=== PATIENT | male | born 1965 | race Caucasian/White ===

== ENCOUNTER → 2018-11-26 | Outpatient (CLI) | payer OTHER ==
--- NOTE | 2018-11-27 00:50 | RADRPT ---
PROCEDURE: RIGHT femur x-ray CLINICAL INDICATION: pain TECHNIQUE: AP and lateral views of the femur were obtained. COMPARISON: None FINDINGS: There is normal mineralization. No acute fracture or dislocation is seen. There are no significant degenerative changes. There is no significant soft tissue swelling. There is calcification adjacent to the medial femoral condyle, consistent with a Bertin-Stieda re gion. RPTAT: AA IMPRESSION: Calcification adjacent to the medial femoral condyle, consistent with a Bertin-Stieda region. No acute fracture. .Rolando Mendez MD, MD Date Time Electronically viewed and signed by .Rolando Mendez MD, on 11/27/2018 00:50 .S/
--- NOTE | 2018-11-27 10:11 | RADRPT ---
PROCEDURE: XR Pelvis CLINICAL INDICATION: Pain TECHNIQUE: Single view of the pelvis were obtained. COMPARISON: None. FINDINGS: There is no acute fracture. Bilateral femoral heads are well seated within the respective acetabula. Obturator rings are intact. Osseous mineralization is normal. IMPRESSION: 1. Unremarkable pelvic radiograph. RPTAT: AAEE Physician Ezequiel Date Time Electronically viewed and signed by Marlys Faust Physician on 11/27/2018 10:11 RF/
--- NOTE | 2018-11-27 16:44 | CONS ---
Assessment/Plan Assessment/Plan Hospital Course (Demo Recall) 53-year-old male with history of Waldenstrom's Lymphoma who presents with severe lower back pain, pelvic pain, and worsening right hip pain. I believe the patient has 2 ongoing issues at this time. The first more acute issue is possible infection either cellulitis versus abscess versus possible lymphadenitis involving his right groin and lateral thigh. In addition to this I believe most of his symptoms as previously stated by the 2 prior orthopedic surgeons secondary to multiple insufficiency fractures of the pelvis and changes in the lower spine are likely related to his lymphoma. There are multiple marrow changes in his pelvis which are consistent with lymphoma. Replacement of the normal bone with tumor can cause weakness in the bone and lead to insufficiency fractures as seen on the MRI. There is no surgical intervention indicated for these fractures. His intermittent lower extremity weakness is likely secondary to nerve compression in his lumbar spine. Again there are changes on the MRI that can be consistent with lymphoma however the disc herniations may or may not be related to his lymphoma. At this time the outpatient labs are closed for the day to obtain further labs to evaluate the patient. He is currently not showing any signs of sepsis. He is afebrile. He is not tachycardic. He has a scheduled appointment tomorrow morning with his oncologist. If the patient begins to have fevers and chills or worsening of symptoms he should go to the emergency department to be admitted to the hospital. I am recommending that he go to [facility] as that is where his oncologist is and all his medical records for his lymphoma are. Otherwise he is to follow-up with his oncologist tomorrow and I am recommending that he has a full work-up for infection and likely be admitted from his oncologist office for further evaluation and treatment as an inpatient as necessary. I expressed to the patient that when he goes to his oncologist office that his oncologist should call my office so I can discuss his case in more detail if necessary. The patient should follow-up with me on a as needed basis as he should follow-up with the orthopedic oncologist and his medical oncologist for further evaluation and treatment. I am recommending protected weightbearing until his pain improves. Consultation Date/Type/Reason Admit Date/Time Date of Consultation: Nov 26, 2018 Reason for Consultation Pelvic pain and right hip pain Date/Time of Note DATE: 11/27/18 TIME: 16:15 Hx of Present Illness This is a 53-year-old male with history of Waldenstrom's lymphoma that was first diagnosed in 2012 secondary to anemia. He was otherwise asymptomatic. He was on infusions at that time while living in [place] for treatment. In 2015 he moved to [place]. He had a new oncologist and the infusions were stopped and just continued clinical follow-up. Patient remained asymptomatic until this August when he began to have severe pelvic and lateral hip pain. The pain was migratory and would change locations sometimes being in the lower back, sometimes in the front or back of the pelvis and sometimes in the hips themselves. He had acute episodes of weakness and at one time could not flex or lift up his left leg. This then spontaneously resolved. He had numerous muscle spasms. He endorses significant increase in night sweats in August and increasing in the last 2 weeks. More acutely in the last 2 weeks he has had significantly more right hip pain. Today he is in so much pain 10 out of 10 pain that he is unable to walk and is presenting in a wheelchair. Prior to his symptoms that started in August he was active. He has seen 2 orthopedic surgeons prior to myself (Dr. Triston Hernandez and Dr. Lino Richardson) for the same issues. The only change is that his right hip pain has become more severe and persistent. Previous MRI of his lumbar spine and his pelvis were brought in by the patient for review. Patient denies shortness of breath, chest pain, nausea/vomiting, constipation, diarrhea, numbness, and tingling. Positive night sweats Denies any significant weight change Positive night Past Medical History waldesntrom's lymphoma Past Surgical History Hernia repair 1999 Family History Significant Family History: no pertinent family hx Social History Alcohol Use: none Smoking Status: Never smoker Drug Use: none Exam/Review of Systems Exam Vitals Weight: 185 Height: 6 feet Temperature: 90.4 Heart Rate: 91 Blood Pressure: 108/62 Respiratory Rate: 12 Exam General: Awake, alert, in no acute distress, pleasant and cooperative Heart: regular rhythm Lungs: breathing comfortably, no tachypnea or dyspnea MUSCULOSKELETAL: Pelvis is stable to stress/compression. There is severe tenderness to palpation over the greater trochanter and IT band. There is severe tenderness palpation over the groin. Examination of the skin shows that the skin is intact. There is significant erythema, swelling, warmth to the right groin and anterior thigh. Range of motion of the hip joint itself is not especially irritable. Sensation intact to light touch in a sural, saphenous, deep peroneal, superficial peroneal, medial and lateral plantar nerve distribution. Motor is intact, patient able to dorsiflex and plantarflex ankle and extend and flex great toe. Dorsalis Pedis pulse +2, Brisk capillary refill. Compartments are soft. Calves non-tender to palpation bilaterally. Imaging Imaging AP pelvis and AP and lateral of the right femur were obtained in clinic today and personally reviewed. Straight no acute bony abnormality. No fracture. No bony lesions. MRI of the pelvis without contrast obtained on 11/11/2018 was personally reviewed. Avascular necrosis of the left femoral head with marrow edema without collapse or depression of the articular surface. Diffuse marrow infiltrative process involving entire visualized osseous structures which is consistent with lymphoma. There is insufficiency fractures of the medial left iliac bone. Nondisplaced avulsion fractures of bilateral ischial tuberosities, greater trochanter, and right lesser trochanter. Nondisplaced insufficiency fracture of right parasymphyseal pubic bone, left inferior pubic rami, right superior acetabular iliac bone and right iliac crest. Mild right sided sacral ileitis with subchondral marrow edema. MRI of the lumbar spine was personally reviewed. This study was obtained on 11/03/2018. Diffuse marrow changes consistent with patient's lymphoma. Marrow edema and L4 vertebral body and L2, L3 and L4 spinous processes consistent with insufficiency fracture. No significant loss in height. Multilevel disc herniations L1-S1. ÁNGEL DAMON MD Nov 27, 2018 16:30
== END | disposition home or self-care (01) ==
LOC: HKI 15:28
PROVIDERS: ATTEND Orthopaedic Surgery Adult Reconstructive Orthopaedic Surgery
DX: M54.5 Low back pain (principal); R10.2 Pelvic and perineal pain; M25.551 Pain in right hip; Z85.72 Personal history of non-Hodgkin lymphomas
CPT/HCPCS: 72170; 73552; G0463